=== PATIENT | female | born 1950 | race Caucasian/White ===

== ENCOUNTER 2016-09-14 07:00 | Day surgery (SDC) | payer OTHER ==
[~2016-09-14 07:00] MED LIST: LACTATED RINGERS 1,000 ML ONE; LIDOCAINE 1% 10 ML VIAL INJ ONE; PROPOFOL 200 MG/20 ML VIAL IV ONE
[2016-09-14] MEDS ORDERED: MIDAZOLAM INJ 5 MG/5 ML VIAL ONE (07:26)
[2016-09-14] MEDS ORDERED: fentaNYL CITRATE INJ 50 MCG/ML AMP ONE (07:26)
[2016-09-14 09:08] VITALS: BP 147/65; TEMP 98; O2SAT 100
--- NOTE | 2016-09-14 09:42 | OP ---
DATE OF PROCEDURE: 09/14/16 PREOPERATIVE DIAGNOSIS: 1. Colon cancer screen. POSTOPERATIVE DIAGNOSIS: 1. Normal colon to the cecum. PROCEDURE: 1. Colonoscopy. SURGEON: dAolfo Andrade MD. ANESTHESIA: MAC by Jamel Mi CRNA. ESTIMATED BLOOD LOSS: None. COMPLICATIONS: None apparent. TECHNIQUE: After informed consent was obtained from the patient, the patient was taken to the Endoscopy Suite and put in the left lateral decubitus position. After adequate IV sedation was obtained, a digital rectal exam was performed which revealed normal sphincter tone and no intraluminal masses. She did have one external hemorrhoidal tag, but no active hemorrhoids. The colonoscope was then passed with good visualization all the way through the colon. The sigmoid colon was very long and redundant and was a little difficult to navigate, but we were finally able to reach the cecum, which was identified by the typical landmarks. The scope was then withdrawn slowly over the next 8 to 10 minutes and a good look at the entire colonic mucosa was obtained. There were no abnormalities identified. She had no polyps, masses, diverticula or mucosal abnormalities. The scope was removed. The patient tolerated the procedure well. The patient was transported to the outpatient area in good condition. She is encouraged to consume a high fiber diet and will followup as needed. #[id number] [facility]
== END 2016-09-14 09:00 | disposition home or self-care (01) ==
LOC: AMB 07:00
PROVIDERS: ATTEND Family Medicine
DX: Z12.11 Encounter for screening for malignant neoplasm of colon (principal); E03.9 Hypothyroidism, unspecified; K21.9 Gastro-esophageal reflux disease without esophagitis; Z88.8 Allergy status to other drugs, medicaments and biological substances; Z79.899 Other long term (current) drug therapy

== ENCOUNTER 2017-12-16 13:50 | Emergency (ER) | payer MEDICARE, OTHER ==
[2017-12-16 14:06] VITALS: TEMP 98.2
--- NOTE | 2017-12-16 14:25 | ED.PDOC ---
History of Present Illness - General Chief Complaint: Upper Extremity Injury Stated Complaint: right hand pain Time Seen by Provider: 12/16/17 14:22 Source: patient Exam Limitations: no limitations - History of Present Illness Occurred: yesterday Pain - Upper Extremity: moderate: Hand, right Method of Injury: fell Improving Factors: immobilization Worsening Factors: movement Allergies/Adverse Reactions: Allergies Cephalexin [From Keflex] Allergy (Verified 12/16/17 14:06) Home Medications: Ambulatory Orders Cholecalciferol [Vitamin D] 1,000 unit PO DAILY 09/13/16 Denosumab [Prolia] 60 mg SC Q6M 09/13/16 Thyroid [Claims Agent Right Of Way Thyroid 30] 30 mg PO DAILY 09/13/16 Tramadol HCl 50 mg PO Q6HR PRN #15 tab 12/16/17 Review of Systems - Review of Systems Constitutional: States: no symptoms reported EENTM: States: no symptoms reported Respiratory: States: no symptoms reported Cardiology: States: no symptoms reported Gastrointestinal/Abdominal: States: no symptoms reported Genitourinary: States: no symptoms reported Musculoskeletal: States: joint pain, joint swelling Skin: States: other - abrasion to lateral hand at 5th finger Neurological: States: no symptoms reported Endocrine: States: no symptoms reported Hematologic/Lymphatic: States: no symptoms reported Past Medical History (General) - Patient Medical History Hx Congestive Heart Failure: No Hx Thyroid Disease: Yes Hx Diabetes: No Hx MRSA: No Surgical History: no surgical history - Vaccination History Hx Influenza Vaccination: Yes - Social History Hx Tobacco Use: No Hx Alcohol Use: No Family Medical History - Family History Mother Family History: Unknown Physical Exam - Physical Exam General Appearance: Alert, No apparent distress Eyes, Ears, Nose, Throat Exam: PERRL/EOMI Neck: non-tender, full range of motion, supple Shoulder Exam: normal inspection, non-tender, normal ROM Elbow/Forearm Exam: normal inspection, non-tender, no evidence of injury Wrist Exam: normal inspection, limited ROM Hand Exam: bone tenderness - over 4-5th MC's, ecchymosis - to ulnar palm, limited ROM, swelling Mental Status: alert, oriented x 3 Skin Exam: normal color, warm/dry Departure - Departure Clinical Impression: Sprain and strain of hand Disposition: Discharge to Home or Self Care Departure Forms: ED Discharge - Pt. Copy, Patient Portal Self Enrollment Instructions: DI for Arm Pain Referrals: Adolfo Andrade MD [Primary Care Provider] - 1-2 Weeks Prescriptions: Tramadol HCl 50 mg PO Q6HR PRN #15 tab PRN Reason: Moderate To Severe Pain Home Medications: Ambulatory Orders Cholecalciferol [Vitamin D] 1,000 unit PO DAILY 09/13/16 Denosumab [Prolia] 60 mg SC Q6M 09/13/16 Thyroid [Claims Agent Right Of Way Thyroid 30] 30 mg PO DAILY 09/13/16 Tramadol HCl 50 mg PO Q6HR PRN #15 tab 12/16/17
--- NOTE | 2017-12-16 14:53 | RAD ---
EXAM DESCRIPTION: Hand,Right 3 Views CLINICAL HISTORY: fell COMPARISON: None FINDINGS: AP, lateral and oblique views of the right hand were submitted. There is no discrete acute fracture or dislocation. Bone mineralization is within normal limits. There is no radiopaque foreign body material. There is narrowing of the interphalangeal joints. IMPRESSION: No acute fracture or dislocation. Electronically signed by: Tee Rubalcava MD 12/16/2017 2:52 PM CDT
[2017-12-16 15:32] VITALS: BP 122/57; O2SAT 95
== END 2017-12-16 15:30 | disposition home or self-care (01) ==
LOC: ER 13:50
DX: S63.91XA Sprain of unspecified part of right wrist and hand, initial encounter (principal); E07.9 Disorder of thyroid, unspecified; W19.XXXA Unspecified fall, initial encounter

== ENCOUNTER → 2018-02-05 | Outpatient (CLI) | payer OTHER ==
--- NOTE | 2018-02-05 16:38 | MRI ---
EXAM DESCRIPTION: Lumbar Spine w/o Contrast : Magnetic Resonance Imaging. CLINICAL HISTORY: LOW BACK PAIN COMPARISON: None. TECHNIQUE: Multiplanar, multiple standard sequences, non contrast MRI, lumbar spine. FINDINGS: L5-S1: Disc desiccation and minimal space loss. Minimal bony canal narrowing. Bilateral moderate foraminal narrowing. Minimal arthrosis of the bilateral facets. L4-5: Disc desiccation and moderate disc space loss. Tiny posterior midline disc bulge abutting the thecal sac. Bilateral flavum ligament hypertrophy impressing the posterior sac. Mild canal and bilateral foraminal narrowing. Facet negative. L3-4: Disc desiccation with no posterior bulging. Disc space maintained. Minimal ligament hypertrophy bilaterally. Mild canal narrowing. Bilateral foramina are patent. L2-3: Disc space maintained with normal signal in the disc. Minimal ligament hypertrophy with normal facets. Mild canal narrowing. Bilateral foramina are patent. L1-2: Normal signal in the disc with disc space maintained. Posterior elements unremarkable. Canal and foramina are patent. T12-L1: Normal signal in the disc with disc space maintained. Posterior elements are unremarkable. Canal and foramina are patent. Conus terminates at T12. Anatomic alignment and curvature of the spine Paravertebral soft tissues showing minimal paraspinal muscle atrophy.. 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 Normal marrow signal in the remaining vertebral bodies and the posterior elements. Vertebral bodies are not compressed at any level. IMPRESSION: 1. Disc space loss and minimal desiccation of L5-S1. Minimal arthrosis bilateral facets. Moderate bilateral foraminal narrowing 2. Tiny posterior midline L4-5 disc bulge. Flavum ligament hypertrophy impressing on the thecal sac. 3. No canal or foraminal stenosis at any level. Electronically signed by: Mike Whalen MD 02/05/2018 4:37 PM CDT
== END ==
LOC: MRI 12:52
PROVIDERS: ATTEND Family Medicine
DX: M51.26 Other intervertebral disc displacement, lumbar region (principal)

== ENCOUNTER → 2018-02-28 | Outpatient (CLI) | payer OTHER | LOC: GMAJ 14:33 | PROVIDERS: ATTEND Family Medicine | DX: E03.4 Atrophy of thyroid (acquired) (principal) ==

== ENCOUNTER → 2018-03-06 | Outpatient (CLI) | payer OTHER ==
--- NOTE | 2018-03-06 16:25 | MRI ---
EXAM DESCRIPTION: Brain w/o Contrast: MRI. CLINICAL HISTORY: TRANSIENT CEREBRAL ISCHEMIC ATTACK COMPARISON: MRI scan of the cervical spine on the same visit. TECHNIQUE: Multiplanar, high-field MRI unit, multiple diffusion sequences, multiple conventional sequences without contrast. Minimal image degradation due to patient head motion. FINDINGS: Small focal hyperintense FLAIR and T2-weighted signal in the subcortical white matter of the posterior left frontal lobe. Smaller lesions closer to the vertex subcortical right frontal lobe white matter.. No hemorrhage, no cerebral edema, no mass-effect, or diffusion restriction associated with these lesions. Normal signal bilateral basal ganglia. Normal signal in the brainstem and cerebellar hemispheres. No hemorrhage, no cerebral edema, no mass-effect. Concordance of the diffusion and non-diffusion sequences with no diffusion restriction. Cortical sulci, ventricles, and other CSF spaces, and the subdural spaces are normally configured for the patient's age. No effacement or displacement. No midline shift. No extra-axial hemorrhage. Normal flow signal void in the major vessels of the [place], and the venous sinuses. IACs are symmetric bilaterally. Small focus of fluid signal in the left mastoid air cells. No mass effect in the bilateral cerebellopontine angles. Pituitary gland occupies most of the sella. Base of the cerebellar tonsils is at the level of the foramen magnum. Complete opacification of the right maxillary antrum. Bilateral turbinate mucosal hypertrophy in the nasal passageways.. The bony calvarium is intact. IMPRESSION: Bilateral focal white matter lesions in the subcortical regions of the frontal lobes at the level of the upper ventricles on the left and closer to the vertex in the right frontal lobe. These are most likely age-related or cerebral microvascular disease. If white matter disease is more likely, consider follow-up imaging with gadolinium IV contrast. No diffusion restriction or hemorrhage. No extra-axial hemorrhage. Minimal left mastoid inflammation. Consider follow-up noncontrast CT scan to evaluate right maxillary antrum. Electronically signed by: Mike Whalen MD 03/06/2018 4:24 PM CDT
--- NOTE | 2018-03-06 16:36 | MRI ---
EXAM DESCRIPTION: Cervical Spine: MRI. CLINICAL HISTORY: RADICULOPATHY COMPARISON: Noncontrast brain MRI on the same visit. TECHNIQUE: Multiplanar MRI, multiple sequences, non-contrast High-field. FINDINGS: C4-5: Disc desiccation and minimal posterior midline bulge. Not abutting the cord. Minimal right facet arthrosis. Canal and neural foramina are patent. C5-6: Mild to moderate disc space loss with Modic type II endplate reactive changes. Posterior disc osteophyte bulge abutting the cord with moderate canal narrowing. Bilateral uncinate spurs. Bilateral moderate neural foraminal narrowing. C6-7: Disc desiccation and posterior midline bulge almost abutting the cord. Schmorl's node in the superior C7 endplate. Mild to moderate canal narrowing. Negative facets. Bilateral mild neural foraminal narrowing. Normal signal in the remaining discs with no bulging. Disc spaces preserved. Canal and neural foramina are patent. Facets are unremarkable. Spinal alignment anatomic. No cord compression or cord edema. Atlantoaxial joint unremarkable. Base of the cerebellar tonsils is above the foramen magnum. Paravertebral soft tissues are negative. Vertebral bodies are not compressed at any level. Normal marrow signal in the remaining vertebral bodies and the posterior elements. IMPRESSION: 1. C4-5 disc desiccation and posterior midline bulge. Minimal right facet arthrosis. No canal or neural foraminal stenosis. 2. C6-7 disc desiccation and posterior disc osteophyte bulge abutting the cord. Schmorl's node superior C7 endplate. No canal or neural foraminal stenosis. 3. C5-6 disc desiccation and moderate spondylosis. Moderate canal and neural foraminal narrowing with no stenosis. Electronically signed by: Mike Whalen MD 03/06/2018 4:34 PM CDT
== END ==
LOC: MRI 13:35
PROVIDERS: ATTEND Psychiatry & Neurology Neurology
DX: G45.9 Transient cerebral ischemic attack, unspecified (principal); M54.12 Radiculopathy, cervical region; M54.16 Radiculopathy, lumbar region; M50.221 Other cervical disc displacement at C4-C5 level

== ENCOUNTER → 2018-07-22 | Outpatient (CLI) | payer OTHER | LOC: GMAJ 16:34 | PROVIDERS: ATTEND Family Medicine | DX: E03.4 Atrophy of thyroid (acquired) (principal) ==

== ENCOUNTER → 2018-09-20 | Outpatient (CLI) | payer OTHER ==
--- NOTE | 2018-09-21 08:53 | RAD ---
EXAM DESCRIPTION: Knee,Right Complete (accession [id number]), Pelvis (accession [id number]): CR/DR/XR. CLINICAL HISTORY: 68 years Female, M25.561, M25.551 COMPARISON: None. TECHNIQUE: One view AP pelvis FINDINGS:. Overall bone density is decreased. Sclerosis is noted in the bilateral SI joints facets. Bilateral hip joints are symmetric. Minimal hypertrophy of the greater trochanters. Enthesophytes on the bilateral ischial tuberosities. No fractures. No radiodense loose bodies. IMPRESSION: Decreased bone density. No acute bony or joint margin abnormality. Electronically signed by: Mike Whalen MD 09/21/2018 8:50 AM CDT
--- NOTE | 2018-09-21 08:53 | RAD ---
EXAM DESCRIPTION: Knee,Right Complete (accession [id number]), Pelvis (accession [id number]): CR/DR/XR. CLINICAL HISTORY: 68 years Female, M25.561, M25.551 COMPARISON: None. TECHNIQUE: One view AP pelvis FINDINGS:. Overall bone density is decreased. Sclerosis is noted in the bilateral SI joints facets. Bilateral hip joints are symmetric. Minimal hypertrophy of the greater trochanters. Enthesophytes on the bilateral ischial tuberosities. No fractures. No radiodense loose bodies. IMPRESSION: Decreased bone density. No acute bony or joint margin abnormality. Electronically signed by: Mike Whalen MD 09/21/2018 8:50 AM CDT
== END ==
LOC: RAD 07:51
PROVIDERS: ATTEND Orthopaedic Surgery
DX: M25.561 Pain in right knee (principal); M25.551 Pain in right hip

== ENCOUNTER → 2019-01-06 | Outpatient (CLI) | payer OTHER ==
--- NOTE | 2019-01-06 13:33 | RAD ---
EXAM DESCRIPTION: Pelvis CLINICAL HISTORY: 68 yearsFemale, M25.562,M25.552 COMPARISON: None. IMPRESSION: An AP view of the pelvis demonstrates no evidence of acute fracture, dislocation, or destructive osseous lesion. 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 Mild degenerative changes in the sacroiliac joints and pubic symphysis. Electronically signed by: Fritz Frey MD 01/06/2019 1:31 PM CDT
--- NOTE | 2019-01-06 13:36 | RAD ---
PROVIDED CLINICAL HISTORY/REASON FOR EXAM: M25.562,M25.552 Findings: Number of images: 4 Location: Left knee No acute fracture or dislocation. Joint spaces are maintained. No significant joint effusion. Scattered osteophytes about the left knee. IMPRESSION: No evidence of acute process in the left knee. Electronically signed by: Luis Costa MD 01/06/2019 1:34 PM CDT
== END ==
LOC: RAD 08:44
PROVIDERS: ATTEND Orthopaedic Surgery
DX: M16.0 Bilateral primary osteoarthritis of hip (principal); M47.898 Other spondylosis, sacral and sacrococcygeal region; M25.562 Pain in left knee